=== PATIENT | male | born 1960 | race Caucasian/White ===

== ENCOUNTER 2018-08-22 19:31 | Outpatient (CLI) | payer BC | END 2018-08-22 19:32 | disposition critical access hospital (66) | LOC: EMS 19:31 | PROVIDERS: ATTEND Surgery | DX: R55 Syncope and collapse (principal); R07.89 Other chest pain | CPT/HCPCS: A0425; A0427 ==

== ENCOUNTER 2018-08-22 19:37 | Emergency (ER) | payer BC ==
[2018-08-22] MEDS ORDERED: ASPIRIN CHEW 81 MG TABLET PO STA (19:45)
--- NOTE | 2018-08-22 19:49 | ED Physician Documentation ---
History of Present Illness - Stated complaint Stated Complaint: CHEST DISCOMFORT - Chief complaint Chief Complaint: Cardiac - History obtained from History obtained from: Patient - History of Present Illness Timing: Prior to arrival - Additonal information Additional information: Patient is a 58-year-old male with history of hypertension and diabetes presenting with syncopal episode that occurred just prior to arrival. Per patient report, he was eating [place] for dinner [place] [address] with his and after dinner walked out to the car and began to feel chest discomfort he described more as GERD-like symptoms with associated shortness of breath and vertiginous symptoms. Patient felt as though he may pass out and it was reported by EMS that his witnessed a syncopal episode of several seconds. Patient did not strike his head or suffer other injury.Patient was then contacted by EMS who noticed that he had significant hypotension which is zoila ounded with fluid in route. No other medications given. Patient continues to experience chest discomfort that he describes as GERD-like symptoms, shortness of breath, general fatigue, and need for bowel movement while in the ED. Patient otherwise denies symptoms or recent illness including fever, headache, nausea, vomiting, urinary changes. Patient is compliant with all medications. Blood glucose appropriate per EMS. Patient denies alcohol and other recreational drugs or known food allergies. No other improving or worsening factors noted. Review of Systems Constitutional: denies: Fever Cardiac: reports: Chest pain / pressure Respiratory: reports: Dyspnea GI: denies: Vomiting, Diarrhea : denies: Dysuria PD PAST MEDICAL HISTORY - Past Medical History Cardiovascular: Hypertension Endocrine/Autoimmune: Type 2 diabetes GI: GERD - Past Surgical History General: Splenectomy Other past surgical history: knee surgery, kidney stone removal - Present Medications Home Medications: Ambulatory Orders Medication Instructions Recorded Confirmed Amlodipine Besylate 10 mg PO DAILY 08/22/18 08/22/18 Atorvastatin [Lipitor] 10 mg PO DAILY 08/22/18 08/22/18 Carvedilol 25 mg PO DAILY 08/22/18 08/22/18 Chlorthalidone 50 mg PO DAILY 08/22/18 08/22/18 Famotidine [Pepcid] 20 mg PO BID #60 tablet 08/22/18 Gabapentin 300 mg PO DAILY 08/22/18 08/22/18 Glimepiride 2 mg PO DAILY 08/22/18 08/22/18 Lisinopril 10 mg PO DAILY 08/22/18 08/22/18 Metformin HCl [Fortamet] 1,000 mg PO DAILY 08/22/18 08/22/18 Omeprazole 20 mg PO DAILY 08/22/18 08/22/18 Ropinirole HCl [Requip] 1 mg PO DAILY 08/22/18 08/22/18 Sildenafil Citrate [Sildenafil] 20 mg PO DAILY 08/22/18 08/22/18 - Allergies Allergies/Adverse Reactions: Allergies Allergy/AdvReac Type Severity Reaction Status Date / Time clarithromycin [From Biaxin] Allergy Anaphylaxis Verified 08/22/18 19:44 PD ED PE NORMAL - Vitals Vital signs reviewed: Yes - General General: Alert and oriented X 3, No acute distress, Well developed/nourished (Flushed, exhausted appearing) - HEENT HEENT: Atraumatic, PERRL, EOMI (No nystagmus), Moist mucous membranes, Pharynx benign, Dentition benign - Neck Neck: Supple, no meningeal sign - Cardiac Cardiac: RRR, No murmur - Respiratory Respiratory: No respiratory distress, Clear bilaterally - Abdomen Abdomen: Normal bowel sounds, Soft, Non tender, Non distended - Derm Derm: Warm and dry, No rash. No: Normal color (Flushed) - Extremities Extremities: No deformity, No tenderness to palpate - Neuro Neuro: Alert and oriented X 3, No motor deficit, No sensory deficit - Psych Psych: Normal mood, Normal affect Results - Vitals Vitals: Vital Signs - 24 hr 08/22/18 08/22/18 08/22/18 19:37 19:55 20:12 Temperature 36.6 C Heart Rate 69 67 Respiratory 18 12 Rate Blood Pressure 122/70 121/68 Blood Pressure 122/70 [Right] O2 Saturation 98 98 08/22/18 08/22/18 08/22/18 20:59 22:00 22:30 Temperature Heart Rate 65 66 68 Respiratory 13 17 21 Rate Blood Pressure 124/71 131/70 H 132/67 H Blood Pressure [Right] O2 Saturation 98 96 97 Oxygen O2 Source Room air - EKG (time done) 194 Rate: Rate (enter#) (68) Rhythm: NSR - Labs Labs: Laboratory Tests 08/22/18 08/22/18 08/22/18 19:45 19:45 19:45 WBC 8.3 RBC 4.26 L Hgb 13.3 L Hct 39.3 L MCV 92.1 MCH 31.2 H MCHC 33.9 RDW 13.7 Plt Count 403 MPV 7.3 L Neut # (Auto) Not Reportable Lymph # (Auto) Not Reportable [place] # (Auto) Not Reportable Eos # (Auto) Not Reportable Baso # (Auto) Not Reportable Absolute Nucleated RBC Not Reportable Total Counted 100 Band Neuts % (Manual) 0 Reactive Lymphs % (Man) 29 Abnorm Lymph % (Manual) 0 Nucleated RBC % Not Reportable Neutrophils # (Manual) 2.9 Lymphocytes # (Manual) 5.3 H Monocytes # (Manual) 0.1 Eosinophils # (Manual) 0.0 Basophils # (Manual) 0.0 Differential Comment MANUAL DIFFERENTIAL Platelet Estimate NORMAL (130-450,000) Platelet Morphology NORMAL APPEARANCE RBC Morph Micro Appear NORMAL APPEARANCE PT INR APTT Sodium 139 Potassium 3.1 L Chloride 106 Carbon Dioxide 22 Anion Gap 11.0 BUN 35 H Creatinine 1.5 H Estimated GFR (MDRD) 48 L Glucose 216 H Calcium 8.2 L Total Bilirubin 0.5 AST 23 ALT 19 Alkaline Phosphatase 82 Troponin I < 0.04 Total Protein 6.1 L Albumin 3.3 Globulin 2.8 Albumin/Globulin Ratio 1.2 Lipase 52 H TSH Urine Color Urine Clarity Urine pH Ur Specific [place] Urine Protein Urine Glucose (UA) Urine Ketones Urine Occult Blood Urine Nitrite Urine Bilirubin Urine Urobilinogen Ur Leukocyte Esterase Ur Microscopic Review Urine Culture Comments 08/22/18 08/22/18 08/22/18 19:45 19:45 20:44 WBC RBC Hgb Hct MCV MCH MCHC RDW Plt Count MPV Neut # (Auto) Lymph # (Auto) [place] # (Auto) Eos # (Auto) Baso # (Auto) Absolute Nucleated RBC Total Counted Band Neuts % (Manual) Reactive Lymphs % (Man) Abnorm Lymph % (Manual) Nucleated RBC % Neutrophils # (Manual) Lymphocytes # (Manual) Monocytes # (Manual) Eosinophils # (Manual) Basophils # (Manual) Differential Comment Platelet Estimate Platelet Morphology RBC Morph Micro Appear PT 10.5 INR 0.9 APTT 22.2 L Sodium Potassium Chloride Carbon Dioxide Anion Gap BUN Creatinine Estimated GFR (MDRD) Glucose Calcium Total Bilirubin AST ALT Alkaline Phosphatase Troponin I Total Protein Albumin Globulin Albumin/Globulin Ratio Lipase TSH 3.04 Urine Color YELLOW Urine Clarity CLEAR Urine pH 6.0 Ur Specific [place] 1.025 Urine Protein TRACE Urine Glucose (UA) NEGATIVE Urine Ketones TRACE Urine Occult Blood NEGATIVE Urine Nitrite NEGATIVE Urine Bilirubin NEGATIVE Urine Urobilinogen 0.2 (NORMAL) Ur Leukocyte Esterase NEGATIVE Ur Microscopic Review NOT INDICATED Urine Culture Comments NOT INDICATED PD MEDICAL DECISION MAKING - ED course Complexity details: reviewed results, re-evaluated patient, considered differential, d/w patient, d/w family ED course: Feel that patient experienced a vasovagal reaction and syncope, likely related to ingestion of a large amount of seafood, particularly as patient complains of GERD-like chest discomfort. No trauma on exam and patient denies injury. Do not have a suspicion for concussion, closed head injury, intracranial injury or bleed. Do not feel patient requires CT head at this time. Do not feel his symptoms are related to a central cause. EKG obtained which not find evidence of ischemia or other concerns. Troponin also negative. Have lower suspicion for ACS, myocardial infarction, unstable angina, but considered. Also have lower suspicion for PE and pneumonia, but obtained chest x-ray, which not find evidence of acute pathology. Patient was hypotensive initially and resuscitated with IV fluids and responded well. Feel this is possibly due to dehydration, but also considered aneurysm or dissection. Blood pressure measurements equal in both arms, but given this concern and PE, obtain CTA chest, abdomen, pelvis to further evaluate. Patient received aspirin given possible cardiac cause, as well as GI cocktail and Pepcid given likely GERD cause. Lab work otherwise and urinalysis returned unremarkable except for esophagitis. CT imaging returned unremarkable for aneurysm, dissection, PE, or other acute pathology. Upon further discussion with patient and his family he knows this was the first time he had eaten greasy foods for the last 5 months as he had drastically changed his diet.Patient also reports that he has had recent changes to his blood pressure medications with removal of 1 medication last month as his blood pressures were too low according to his physician he was otherwise symptomatic. Do feel that his medications could be causing persistent low blood pressure and orthostatic changes which could be contributory to today's symptoms. Discussed use of antacid medication at home, hydration and diet recommendations, supportive cares, strict return precautions, need for close primary care follow- up for these multiple issues. Patient and family voiced understanding and are comfortable with discharge plan. Departure - Departure Clinical Impression: Esophagitis Hypotension Qualifiers: Hypotension type: unspecified hypotension type Qualified Code(s): I95.9 - Hypotension, unspecified Condition: Good Instructions: ED GERD, ED Hypotension All Causes Follow-Up: your,doctor [Other] - Within 3 Days Prescriptions: Famotidine [Pepcid] 20 mg PO BID #60 tablet Comments: Please continue home medications as previously instructed. Recommend adding Pepcid or other [id number] antacid to your acid reflux regimen. Also recommend avoiding fried, fatty, greasy foods that could worsen your acid reflux. Please follow-up with your primary care physician next 2 3 days to discuss this episode, acid reflux, and low blood pressure likely due to blood pressure medications. Return to ED sooner if experience worsening symptoms or other concerns.
[2018-08-22 19:54] LABS: BASOPHILS % (AUTO) 0.4 %; EOSINOPHILS % (AUTO) 0.8 %; HGB - HEMOGLOBIN 13.3 g/dL (14.0-18.0); LYMPHOCYTES % (AUTO) 66.6 %; MEAN CORPUSCULAR HEMOGLOBIN 31.2 pg (27.0-31.0); MEAN CORPUSCULAR HGB CONC 33.9 g/dL (32.0-36.0); MEAN CORPUSCULAR VOLUME 92.1 fL (80.0-94.0); MEAN PLATELET VOLUME 7.3 fL (7.4-11.4); MONOCYTES % (AUTO) 2.2 %; PLT - PLATELET COUNT 403 10^3/uL (130-450); RED BLOOD COUNT 4.26 10^6/uL (4.70-6.10); RED CELL DISTRIBUTION WIDTH 13.7 % (12.0-15.0); WHITE BLOOD COUNT 8.3 x10^3/uL (4.8-10.8)
[2018-08-22 19:58] LABS: INR 0.9 (0.8-1.2); PT - PROTHROMBIN TIME 10.5 secs (9.9-12.6)
[2018-08-22 20:05] LABS: ALBUMIN 3.3 g/dL (3.2-5.5); ALBUMIN/GLOBULIN RATIO 1.2 (1.0-2.2); BILIRUBIN,TOTAL 0.5 mg/dL (0.2-1.0); CALCIUM 8.2 mg/dL (8.5-10.3); CREATININE 1.5 mg/dL (0.6-1.2); PARTIAL THROMBOPLASTIN TIME 22.2 secs (24.9-33.3); TOTAL PROTEIN 6.1 g/dL (6.7-8.2)
[2018-08-22 20:07] LABS: ABNORMAL LYMPHS % (MANUAL) 0 %; BAND NEUTROPHILS % (MANUAL) 0 %
--- NOTE | 2018-08-22 20:28 | XRAY Report ---
Reason: chest pain Procedure Date: 08/22/2018 Accession Number: [id number] / [id number] Procedure: XR - Chest 1 View X-Ray CPT Code: 14137 FULL RESULT: EXAM: CHEST RADIOGRAPHY EXAM DATE: 08/22/2018 08:01 PM. CLINICAL HISTORY: Chest pain. COMPARISON: None. TECHNIQUE: 1 view. FINDINGS: Lungs/Pleura: No focal consolidation or evidence of edema. No pleural effusion or pneumothorax. Mediastinum: Normal cardiomediastinal contour. Other: Mild degenerative changes within the spine. IMPRESSION: No acute cardiopulmonary abnormality. [facility]
[2018-08-22 20:29] LABS: LYMPHOCYTES # (MANUAL) 5.3 10^3/uL (1.5-3.5); LYMPHOCYTES % (MANUAL) 35 %; MONOCYTES # (MANUAL) 0.1 10^3/uL (0.0-1.0); NEUTROPHILS # (MANUAL) 2.9 10^3/uL (1.5-6.6); NEUTROPHILS % (MANUAL) 35 %
[2018-08-22 20:30] LABS: DIFFERENTIAL COMMENT MANUAL DIFFERENTIAL; PLATELET ESTIMATE, MANUAL NORMAL (130-450,000) (NORMAL); PLATELET MORPHOLOGY NORMAL APPEARANCE (NORMAL); RBC MORPHOLOGY (MULTIPLE) NORMAL APPEARANCE (NORMAL)
[2018-08-22 20:53] LABS: BILIRUBIN,URINE NEGATIVE (NEGATIVE); GLUCOSE, URINE (UA) NEGATIVE (NEGATIVE); KETONES,URINE (UA) TRACE mg/dL (NEGATIVE); LEUKOCYTE ESTERASE, URINE NEGATIVE (NEGATIVE); NITRITE,URINE NEGATIVE (NEGATIVE); OCCULT BLOOD,URINE NEGATIVE (NEGATIVE); PROTEIN,URINE TRACE mg/dL (NEGATIVE); UROBILINOGEN,URINE 0.2 (NORMAL) E.U./dL (NORMAL)
[2018-08-22] MEDS ORDERED: MAG HYDROX/AL HYDROX/SIMETH 30 ML UDC PO STA (20:59)
[2018-08-22] MEDS ORDERED: SODIUM CHLORIDE 0.9% 1,000 ML IV ONE (21:01)
[2018-08-22 21:04] LABS: CLARITY,URINE CLEAR (CLEAR)
[2018-08-22] MEDS ORDERED: IOVERSOL 320 100 ML VIAL IVP ONE ×2 (21:14→21:50)
--- NOTE | 2018-08-22 22:20 | CT Report ---
Reason: Eval for dissection/aneurysm Procedure Date: 08/22/2018 Accession Number: [id number] / [id number] Procedure: CT - ANGIO CHEST W/WO CPT Code: FULL RESULT: EXAM: CT ANGIOGRAM CHEST WITH AND WITHOUT CONTRAST EXAM DATE: 08/22/2018 09:27 PM. CLINICAL HISTORY: Chest and abdominal pain. Evaluate for aneurysm/dissection. COMPARISON: None. TECHNIQUE: Routine helical imaging was performed prior to contrast administration and during the arterial phase. IV Contrast: 100 mL Optiray 320. Reconstructions: Axial, coronal, and sagittal 3-D MIP reconstructions.Sagittal and coronal. In accordance with CT protocol optimization, one or more of the following dose reduction techniques were utilized for this exam: automated exposure control, adjustment of mA and/or KV based on patient size, or use of iterative reconstructive technique. FINDINGS: Vascular Structures: No aortic aneurysm, dissection, or atherosclerotic disease. No pulmonary embolus is seen to the subsegmental arteries. Lungs/Pleura: 4 mm calcified granuloma in the inferior right upper lobe. No focal infiltrate, pleural effusion, or pneumothorax. Mediastinum: Diffuse esophageal wall thickening with adjacent inflammatory fat stranding and trace fluid in the posterior mediastinum. Heart size is normal. No pericardial effusion. Few prominent right hilar nodes measuring up to 12 mm in short axis dimension, nonspecific. Upper Abdomen: Small calcified granuloma in the right hepatic dome. Bones: Mild degenerative changes within the spine. No acute bony abnormality. Other: None. IMPRESSION: 1. Diffuse esophageal wall thickening with adjacent inflammatory fat stranding and trace fluid in the posterior mediastinum. Appearance suggests severe esophagitis. 2. No aortic aneurysm or dissection. 3. No pulmonary embolus. [facility]
[2018-08-22] MEDS ORDERED: FAMOTIDINE 20 MG TABLET PO STA (22:31)
--- NOTE | 2018-08-22 22:32 | CT Report ---
Reason: eval for dissection/aneurysm Procedure Date: 08/22/2018 Accession Number: [id number] / [id number] Procedure: CT - ANGIO ABDOMEN/PELVIS W CPT Code: FULL RESULT: EXAM: CT ANGIOGRAM ABDOMEN AND PELVIS WITH CONTRAST EXAM DATE: 08/22/2018 09:27 PM. CLINICAL HISTORY: Chest and abdominal pain. Evaluate for aortic aneurysm/dissection. COMPARISONS: None. TECHNIQUE: Routine helical CT angiogram imaging was performed through the abdomen and pelvis in the arterial phase. IV contrast: OPTIRAY 320 100mL, administered as part of concurrent CTA chest. Enteric contrast: No. Reconstructions: Coronal, sagittal, and 3D MIP reconstructions. In accordance with CT protocol optimization, one or more of the following dose reduction techniques were utilized for this exam: automated exposure control, adjustment of mA and/or KV based on patient size, or use of iterative reconstructive technique. FINDINGS: Vasculature: Mild to moderate atherosclerotic calcifications and plaque within the aorta and iliac arteries. No aneurysm, dissection, or hemodynamically significant atherosclerotic disease of the abdominal aorta and iliac arteries. The visualized mesenteric and solid organ vascular structures are within normal limits. Lung Bases: Clear. Abdominal Solid Organs: Post splenectomy. A 1.1 x 0.8 cm partially calcified nodule in the resection bed may represent a tiny splenule or postoperative change ( 2/54). Two small adjacent exophytic nodules arising from the anterior left hepatic lobe measuring 1.2 x 1.0 cm and 0.9 x 0.8 cm, respectively (2/36). Small calcified granuloma in the right hepatic dome. Focal cortical scarring in the medial left upper pole renal cortex. A circumscribed subcentimeter hypoattenuating focus in the lateral left upper pole cortex is too small to characterize further (2/80). 5.5 cm exophytic cyst arising from the lower pole of the right kidney. Unremarkable appearance of the pancreas and adrenal glands. Gallbladder and Bile Ducts: Unremarkable. No visualized stones or biliary ductal dilatation. Peritoneal Cavity: Hazy infiltration of the central mesentery containing numerous subcentimeter mesenteric nodes. Several mildly enlarged periportal nodes, for example a 1.5 x 1.1 cm celiac axis node (2/59) and a 1.9 x 1.3 cm portacaval node (2/70). Large colonic stool volume. Sigmoid diverticulosis without focal colon wall thickening or adjacent mesenteric stranding to suggest acute diverticulitis. No evidence for bowel obstruction. The appendix is normal. No free fluid or pneumoperitoneum. Pelvic Organs: The bladder and visualized pelvic organs are within normal limits. Bones: Mild degenerative disk disease and moderate facet arthropathy in the lower lumbar spine. No acute bony abnormality. Other: Postoperative changes of laparoscopic bilateral inguinal hernia repair. IMPRESSION: 1. No aortic aneurysm or dissection. 2. Hazy infiltration of the central mesentery containing numerous subcentimeter mesenteric nodes, nonspecific finding with differential considerations including mesenteric panniculitis, enteritis, lymphoma, others. 3. Post splenectomy. 4. Two small exophytic nodules arising from the anterior left hepatic lobe, indeterminate. Consider further characterization with liver protocol MRI abdomen, which could be performed in the outpatient setting. 5. Sigmoid diverticulosis without CT evidence for acute diverticulitis. 6. Large colonic stool volume. [facility]
[2018-08-22 22:38] VITALS: BP 132/67
== END 2018-08-22 22:50 | disposition home or self-care (01) ==
LOC: ED 19:37
DX: I95.9 Hypotension, unspecified (principal); K20.9 Esophagitis, unspecified; I10 Essential (primary) hypertension; E11.9 Type 2 diabetes mellitus without complications; Z79.84 Long term (current) use of oral hypoglycemic drugs
CPT/HCPCS: 36415; 71045; 71275; 74174; 81003; 83690; 84484; 85610; 85730; 93005; 96360; 99283; A9270; Q9967; 80053; 81001; 84443; 85025; 87086